=== PATIENT | female | born 1940 | race Caucasian/White ===

== ENCOUNTER → 2018-07-29 | Outpatient (CLI) | payer OTHER | LOC: ULTRA 12:37 | DX: I70.212 Atherosclerosis of native arteries of extremities with intermittent claudication, left leg (principal); L97.929 Non-pressure chronic ulcer of unspecified part of left lower leg with unspecified severity ==

== ENCOUNTER → 2018-09-27 | Outpatient (CLI) | payer OTHER ==
[~2018-09-27] VITALS: Ht 167.6 cm; Wt 63.5 kg
[~2018-09-27] MED LIST: AZOR 5-20 MG T1 EACH PO; CENTRUM SILVER1 EAC4 PO; CLARITIN10 MG PO; FOSAMAX 70 MG T70 MG PO; SINGULAIR 10 MG10 M1 PO; SYNTHROID50 MCG PO
[2018-09-27 09:23] VITALS: BP 147/103
[2018-09-27 09:34] LABS: HEMOGLOBIN 11.7 gm/dL (12.0-15.0); MCH 32.3 pg (26.0-34.0); MCHC 34.4 g/dL (28.0-37.0); MCV 93.9 fL (80.0-100.0); RBC 3.62 mil/uL (4.20-5.00); RDW 12.9 % (10.5-14.5); WBC 4.4 thou/uL (4.0-11.0)
[2018-09-27 09:44] LABS: CREATININE 0.8 mg/dL (0.6-1.0); POTASSIUM 3.6 mmol/L (3.5-5.1)
[2018-09-27 15:30] VITALS: BP 140/58
== END | disposition home or self-care (01) ==
LOC: SPEC 08:51
PROVIDERS: Radiology Diagnostic Radiology
DX: I70.212 Atherosclerosis of native arteries of extremities with intermittent claudication, left leg (principal); M25.572 Pain in left ankle and joints of left foot; I10 Essential (primary) hypertension; Z90.710 Acquired absence of both cervix and uterus; Z98.890 Other specified postprocedural states; Z79.899 Other long term (current) drug therapy

== ENCOUNTER → 2018-12-24 | Outpatient (CLI) | payer OTHER | LOC: ULTRA 13:15 | DX: I73.9 Peripheral vascular disease, unspecified (principal) ==

== ENCOUNTER 2020-10-02 10:30 | Emergency (ER) | payer OTHER ==
[~2020-10-02] VITALS: Ht 167.6 cm; Wt 63.5 kg
--- NOTE | ~2020-10-02 | EMS ---
[address] [address] EMS Patient Care Report Name: SANDY BASILIO Room #: REG [facility]#: [id number] Admission: 10/02/20 Attend Phys: Discharge: Date of : 40 Report #: [id number] THIS REPORT FOR: //name// Report Transmitted: 10/02/2020 10:46 EMS Care Summary [place], [place]/[facility] Incident [id number] @ 10/02/2020 09:29 Incident Location [address] [place] [address] Patient SANDY BASILIO Female, 79 Years 1940 Patient Address [address] [place] [address] Patient History Hypertension (HTN),Hypothyroidism, Patient Allergies No known allergies, Patient Medications Amlodipine, Levothyroxine, Singulair, Chief Complaint WEAKNESS-NOT FEELING RIGHT Disposition Transported No Lights/[place] Dispatch Reason Sick Person Transported To [facility] Narrative UPON ARRIVAL PATIENTS FAMILY ADVISED THAT SHE WAS NOT FEELING RIGHT. THEY SAID THAT SHE WAS WEAK AND DIZZY. THE PATIENT SAID THAT IT STARTED WHEN SHE WOKE UP. PATIENT ADVISED THAT SHE WAS FEELING A LITTLE BIT BETTER AND DID NOT WANT TO GO TO THE HOSPITAL. PATIENTS FAMILY WAS ABLE TO TALK THE PATIENT INTO GOING [address] [address] EMS Patient Care Report Name: SANDY BASILIO Room #: REG LILIANA Chaudhry#: [id number] Admission: 10/02/20 Attend Phys: Discharge: Date of : 40 Report #: [id number] TO THE HOSPITAL. SHE WAS ASSISTED TO THE COT AND MOVED TO THE AMBULANCE. SHE WAS TRANSPORTED TO [facility]. I DID NOT OBSERVE ANY OBVIOUS INJURIES TO THE PATIENT. Initial Vitals @09:52P: 86,BP: 177/81,CO: 3,SpO2: 100, @09:50P: 90,BP: 148/76,CO: 2,SpO2: 98, @09:48P: 67,R: 18,BP: 92/59,Pain: 0/10,GCS: 15,Glucose: 147,SpO2: 98,Revised Trauma: 12, Assessments @09:41MENTAL:Person Oriented,Time Oriented,Event Oriented,Place Oriented,SKIN:HEENT:LUNG SOUNDS:ABDOMEN:PELVIS//GI:EXTREMITIES:PULSE:Radial: 2+ Normal,NEURO: Impression Generalized Weakness Procedures @09:41ALS AssessmentResponse: UnchangedSucceeded Timeline 09:29,Call Received 09:29,Dispatch Notified 09:29,Dispatched 09:30,En Route 09:38,On Scene 09:40,At Patient 09:41,ALS Assessment,Response: UnchangedSucceeded, 09:48,BP: 92/59 M,PULSE: 67,RR: 18 R,SPO2: 98 Ox,ETCO2: ,B,PAIN: 0,GCS: 15, 09:50,BP: 148/76 M,PULSE: 90,RR: R,SPO2: 98 Ox,ETCO2: ,BG: ,PAIN: ,GCS: , 09:52,BP: 177/81 M,PULSE: 86,RR: R,SPO2: 100 Ox,ETCO2: ,BG: ,PAIN: ,GCS: , 10:00,Depart Scene 10:29,At Destination 10:36,Call Closed Disclaimer [email or web address] Copyright 2020 [email or web address] This EMS Care Summary contains data elements from the applicable legal record (which may be displayed differently). It is designed to provide pertinent information for the following purposes: continuity of care, clinical quality, and state data reporting. The complete legal record is available to ED staff and administrators of the receiving hospital in [employer] Patient Tracker. All data is provided "as is."
[2020-10-02 11:05] LABS: ABSOLUTE NEUTROPHILS 2.8 thou/uL (1.4-8.2); BASOPHILS 0.7 % (0.0-2.0); EOSINOPHILS 0.3 % (0.0-3.0); HEMOGLOBIN 11.9 gm/dL (12.0-15.0); LYMPHOCYTES 29.4 % (24.0-44.0); MCH 31.9 pg (26.0-34.0); MCHC 35.1 g/dL (28.0-37.0); MONOCYTES 15.1 % (1.0-8.0); PLATELET COUNT 348 thou/uL (150-400); POLYS 54.5 % (36.0-66.0); RBC 3.74 mil/uL (4.20-5.00); RDW 13.3 % (10.5-14.5); WBC 5.1 thou/uL (4.0-11.0)
[2020-10-02 11:28] LABS: ANION GAP 8 mmol/L (7-16); BUN 13 mg/dL (7-18); CALCIUM 8.8 mg/dL (8.5-10.1); CHLORIDE 92 mmol/L (98-107); CO2 27 mmol/L (21-32); CREATININE 0.9 mg/dL (0.6-1.0); GLUCOSE 123 mg/dL (74-106); SODIUM 127 mmol/L (136-145)
[2020-10-02 11:30] LABS: POTASSIUM 4.2 mmol/L (3.5-5.1)
[2020-10-02 11:33] LABS: MAGNESIUM 1.9 mg/dL (1.8-2.4); SGOT 30 U/L (15-37); SGPT 22 U/L (14-59); TOTAL BILIRUBIN 0.6 mg/dL (0.2-1.0); TROPONIN-I <0.06 ng/mL (<0.06)
--- NOTE | 2020-10-02 11:39 | EKG ---
[place] [address] [employer] [employer] [place] [address] ELECTROCARDIOGRAM REPORT Name: PRAFULSANDY M Room #: REG [facility]#: [id number] Admission: 10/02/20 Attend Phys: Discharge: Date of : 40 Report #: [id number] [facility] ED Test Date: 2020-10-02 Test Time: 10:42:16 Pat Name: SANDY BASILIO Department: Room: Gender: F Supervisor Drawing: LISA : 1940 Requested By: Doni Galeas Order Number: [id number] MD: Hans Daniel Measurements Intervals [place] Rate: 78 P: 41 OR: 170 QRS: 10 QRSD: 91 T: 31 QT: 399 QTc: 455 Interpretive Statements Sinus rhythm Probable left atrial enlargement Abnormal R-wave progression, early transition No previous ECG available for comparison Electronically Signed On 10-02-2020 11:39:17 CDT by Hans Daniel [email or web address] <ELECTRONICALLY SIGNED> By: Hans Daniel MD, [facility] 10/02/20 1139 [id number] [id number] Hans Daniel MD, FACC /EPI
[2020-10-02 12:08] LABS: URINE BILIRUBIN NEGATIVE (Negative); URINE BLOOD NEGATIVE (Negative); URINE CLARITY CLEAR; URINE COLOR YELLOW; URINE GLUCOSE-RANDOM* NEGATIVE (Negative); URINE KETONES NEGATIVE (Negative); URINE LEUKOCYTES-REFLEX TRACE (Negative); URINE NITRITE-REFLEX NEGATIVE (Negative); URINE PROTEIN (DIPSTICK) NEGATIVE (Negative); URINE UROBILINOGEN 0.2 E.U./dl (0.2-1.0)
[2020-10-02] MEDS ORDERED: MECLIZINE HCL25 M1 PO (14:50)
[2020-10-02 15:42] VITALS: BP 157/81
== END 2020-10-02 15:44 | disposition home or self-care (01) ==
LOC: ER 10:30
PROVIDERS: Emergency Medicine
DX: E87.1 Hypo-osmolality and hyponatremia (principal); Z20.822 Contact with and (suspected) exposure to COVID-19; R53.1 Weakness; I10 Essential (primary) hypertension; Z90.710 Acquired absence of both cervix and uterus; Z90.89 Acquired absence of other organs